=== PATIENT | female | born 1970 | race Two or more races ===

== ENCOUNTER 2017-01-01 10:20 | Emergency (ER) | payer SELFPAY ==
[~2017-01-01] VITALS: Ht 172.7 cm; Wt 61.2 kg
[~2017-01-01 10:20] MED LIST: BENZ200C39 PO; BUTA1CAP29 PO; CETI10TA22 PO
[2017-01-01 10:53] VITALS: BP 120/77
[2017-01-01] MEDS ORDERED: HYDR-971 PO (10:57)
[2017-01-01] MEDS ORDERED: LEVO500T38 PO (10:57)
--- NOTE | 2017-01-01 10:58 | PHYS DOC ---
Past Medical History Past Medical History: Sinusitis Past Surgical History: No Surgical History Alcohol Use: None Drug Use: None Adult General Chief Complaint Chief Complaint: DENTAL PROBLEM [facility] HPI Patient is a 46 year old female presents emergency department stating that she has having upper dental pain and discomfort with sinus pressure on the left since Monday. Patient does state she has some chronic sinus problems. Patient states that she's been trying to use closed to pull out the infection without success. She has been taken Aleve sinus to help with her sinus pressure without success either. Patient denies fever, chills or any nausea vomiting. She denies any foul tightness in her mouth. Patient states that she does not have a dentist in which to follow-up with due to funds. Review of Systems Review of Systems Constitutional: Denies fever or chills [] Eyes: Denies change in visual acuity, redness, or eye pain [] HENT: Denies nasal congestion or sore throat. C/o upper frontal dental pain and left sinus pressure Respiratory: Denies cough or shortness of breath [] Cardiovascular: No additional information not addressed in HPI [] GI: Denies abdominal pain, nausea, vomiting, bloody stools or diarrhea [] : Denies dysuria or hematuria [] Musculoskeletal: Denies back pain or joint pain [] Integument: Denies rash or skin lesions [] Neurologic: Denies headache, focal weakness or sensory changes [] Allergies Allergies Allergies Coded Allergies Type Severity Reaction Last Updated Verified Penicillins Allergy Intermediate rash 08/23/16 Yes Physical Exam Physical Exam Constitutional: Well developed, well nourished, no acute distress, non-toxic appearance. [] HENT: Normocephalic, atraumatic, bilateral external ears normal, oropharynx moist, no oral exudates, nose normal. Bilateral tympanic membrane appears to be normal. Throat with postnasal drip yellow in color noted. No exudate noted. Patient with upper teeth that appear to be decayed down into the gums. Patient does have tenderness noted on the left upper gum area. Patient does have swelling noted to the left maxillary sinus area with tenderness noted. Eyes: PERRLA, EOMI, conjunctiva normal, no discharge. [] Neck: Normal range of motion, no tenderness, supple, no stridor. [] Cardiovascular:Heart rate regular rhythm, no murmur [] Lungs & Thorax: Bilateral breath sounds clear to auscultation [] Skin: Warm, dry, no erythema, no rash. [] Back: No tenderness Extremities: No tenderness, no cyanosis, no clubbing, ROM intact, no edema. [] Neurologic: Alert and oriented X 3, normal motor function, normal sensory function, no focal deficits noted. [] Psychologic: Affect normal, judgement normal, mood normal. [] EKG EKG [] Radiology/Procedures Radiology/Procedures [] Course & Med Decision Making Course & Med Decision Making Pertinent Labs and Imaging studies reviewed. (See chart for details) Recommended patient to do warm salt water gargles 4 times a day and prior to bedtime. Patient will be provided with hydrocodone for severe pain and discomfort. Recommended to continue to use the Aleve sinus. She will be placed on antibiotics for dental infection and sinusitis. Recommended patient follow- up with the dentist within the next week. Patient agrees with discharge instructions treatment regimens and follow-up recommendations. Dragon Disclaimer Dragon Disclaimer This electronic medical record was generated, in whole or in part, using a voice recognition dictation system. Departure Departure Impression: Primary Impression: Sinusitis Additional Impression: Dental infection Disposition: HOME, SELF-CARE Condition: STABLE Referrals: NO PCP (PCP) Patient Instructions: Dental Pain, [id number], Sinusitis, [id number] Additional Instructions: Activity as tolerated Medication as prescribed Warm salt water mouth rinses four times a day and prior to bedtime Drink plenty of fluids Followup with dentist in the next week Return to emergency department as needed for signs and symptoms that become worse. Scripts Levofloxacin (Levaquin)500 Mg Tablet1 Tab PO DAILY #7 TAB Prov:LIDIA BANKS MANAGER ANALYTICAL 01/01/17 Hydrocodone/Apap 5-325 ([place] 5-325 Tablet)1 Each Tablet1 Tab PO PRN Q6HRS PRN PAIN #10 TAB Prov:LIDIA BANKS MANAGER ANALYTICAL 01/01/17 Problem Qualifiers LIDIA BANKS MANAGER ANALYTICAL Jan 01, 2017 10:58
== END 2017-01-01 11:02 | disposition home or self-care (01) ==
LOC: ER 10:20
DX: J32.9 Chronic sinusitis, unspecified (principal); K04.7 Periapical abscess without sinus; Z88.0 Allergy status to penicillin
CPT/HCPCS: 81025; 99283

== ENCOUNTER 2017-11-10 13:11 | Emergency (ER) | payer SELFPAY | END 2017-11-10 14:00 | disposition home or self-care (01) | LOC: ER 13:11 | DX: K04.7 Periapical abscess without sinus (principal); Z88.0 Allergy status to penicillin | CPT/HCPCS: 99283 ==

== ENCOUNTER 2018-12-20 14:33 | Emergency (ER) | payer SELFPAY ==
[~2018-12-20] VITALS: Ht 172.7 cm; Wt 65.8 kg
[~2018-12-20 14:33] MED LIST changes: -BENZ200C39 PO; +BENZ200C47 PO; +CLIN300C8 PO; +HYDR-3164 PO; +LEVO500T59 PO
[2018-12-20 16:34] VITALS: BP 131/86
[2018-12-20 17:17] LABS: BILIRUBIN,URINE NEGATIVE (NEG); CLARITY,URINE CLEAR; COLOR,URINE YELLOW; NITRITE,URINE NEGATIVE (NEG); PH,URINE 6.5; PROTEIN,URINE NEGATIVE (NEG-TRACE); UROBILINOGEN,URINE 0.2 mg/dL (0.2 mg/dL)
[2018-12-20 17:22] LABS: BACTERIA,URINE 0 /HPF (0-FEW); RBC,URINE 0 /HPF (0-2); SQUAMOUS EPITHELIAL CELL,UR OCC /LPF; WBC,URINE 0 /HPF (0-4)
[2018-12-20 17:35] LABS: BASO # 0.1 x10^3/uL (0.0-0.2); BASO % 1 % (0-3); EOS # 0.2 x10^3/uL (0.0-0.7); EOS % 2 % (0-3); HEMATOCRIT 39.5 % (36.0-47.0); LYMPH # 2.1 x10^3/uL (1.0-4.8); LYMPH % 24 % (24-48); MEAN CORPUSCULAR HEMOGLOBIN 29 pg (25-35); MEAN CORPUSCULAR HGB CONC 33 g/dL (31-37); MEAN CORPUSCULAR VOLUME 88 fL (79-100); MONO # 0.6 x10^3/uL (0.0-1.1); MONO % 7 % (0-9); NEUT # 5.7 x10^3uL (1.8-7.7); NEUT % 66 % (31-73); PLATELET COUNT 266 x10^3/uL (140-400); RED CELL DISTRIBUTION WIDTH 14.6 % (11.5-14.5); WHITE BLOOD COUNT 8.7 x10^3/uL (4.0-11.0)
[2018-12-20 17:49] LABS: CREATININE 0.7 mg/dL (0.6-1.0); GFR 89.3; POTASSIUM 3.9 mmol/L (3.5-5.1)
[2018-12-20 17:55] LABS: ALBUMIN 3.7 g/dL (3.4-5.0); ALBUMIN/GLOBULIN RATIO 0.9 (1.0-1.7); TOTAL BILIRUBIN 0.3 mg/dL (0.2-1.0)
--- NOTE | 2018-12-20 19:01 | RAD ---
PELVIS W/TV: 12/20/2018 5:41 PM INDICATION: 48 years old Female. VAGINAL BLEEDING. COMPARISON: None. TECHNIQUE: Transabdominal and transvaginal sonographic evaluation of the pelvis was performed. Grayscale, color Doppler and spectral waveform analysis were utilized. FINDINGS: UTERUS: Size: 8.4 x 4.7 x 5.0 cm. Masses: None. Endometrium: 10.2 mm. Trace fluid is noted within the endometrium. RIGHT OVARY: Not visualized. LEFT OVARY: 2.1 x 1.5 x 1.9 cm. Unremarkable. Arterial and venous waveforms are identified at the time of imaging. FREE FLUID: None. URINARY BLADDER: Unremarkable. IMPRESSION: Trace fluid is identified within the endometrium which is within normal limits measuring 10.2 mm (normal for premenopausal female). Right ovary is not visualized. Left ovary is normal in appearance. Electronically signed by: Ankita Wagner MD (12/20/2018 6:59 PM) [facility]
--- NOTE | 2018-12-20 19:26 | PHYS DOC ---
Past Medical History Past Medical History: Other Additional Past Medical Histor: miscarriage 2014 (KIKO DALE APRN) Past Surgical History: No Surgical History (KIKO DALE APRN) Alcohol Use: None Drug Use: None (ROCHELLEUbaldoKIKO APRN) Adult General Chief Complaint Chief Complaint: VAGINAL BLEEDING HPI HPI Patient is a 48 year old female who presents with vaginal bleeding. Patient states since the beginning of this month she's had two menstrual cycles, she states this cycle began 2-3 days ago. She states the periods are light but concerning to her. She states she does not have any abdominal pain, no nausea, no vomiting. Denies any chance she is . (CHITOKIKO ZENDEJAS) Review of Systems Review of Systems Constitutional: Denies fever or chills [] Eyes: Denies change in visual acuity, redness, or eye pain [] HENT: Denies nasal congestion or sore throat [] Respiratory: Denies cough or shortness of breath [] Cardiovascular: No additional information not addressed in HPI [] GI: Reports vaginal bleeding. Denies abdominal pain, nausea, vomiting, bloody stools or diarrhea [] : Denies dysuria or hematuria [] Musculoskeletal: Denies back pain or joint pain [] Integument: Denies rash or skin lesions [] Neurologic: Denies headache, focal weakness or sensory changes [] All other systems were reviewed and found to be within normal limits, except as documented in this note. (CHITOKIKO APRN) Current Medications Current Medications Current Medications Medications (Trade) Dose Ordered Sig/Laura Start Time Stop Time Status Last Admin Dose Admin Acetaminophen (Tylenol) 1,000 mg 1X ONCE 12/20/18 19:30 12/20/18 19:31 DC 12/20/18 19:27 1,000 MG (LUCRECIA BROWN DO) Allergies Allergies Allergies Coded Allergies Type Severity Reaction Last Updated Verified Penicillins Allergy Intermediate rash 08/23/16 Yes (LUCRECIA BROWN DO) Physical Exam Physical Exam Constitutional: Well developed, well nourished, no acute distress, non-toxic appearance. [] HENT: Normocephalic, atraumatic, bilateral external ears normal, oropharynx moist, no oral exudates, nose normal. [] Eyes: PERRLA, EOMI, conjunctiva normal, no discharge. [] Neck: Normal range of motion, no tenderness, supple, no stridor. [] Cardiovascular:Heart rate regular rhythm, no murmur [] Lungs & Thorax: Bilateral breath sounds clear to auscultation [] Abdomen: Bowel sounds normal, soft, no tenderness, no masses, no pulsatile masses. [] Pelvic exam External pelvic appears normal, cervix is visualized, closed, no CMT, no adnexal tenderness, small amount of blood in the vaginal vault. Skin: Warm, dry, no erythema, no rash. [] Back: No tenderness, no CVA tenderness. [] Extremities: No tenderness, no cyanosis, no clubbing, ROM intact, no edema. [] Neurologic: Alert and oriented X 3, normal motor function, normal sensory function, no focal deficits noted. [] Psychologic: Affect normal, judgement normal, mood normal. [] (KIKO DALE APRN) Current Patient Data Vital Signs Vital Signs Date Time Temp Pulse Resp B/P (MAP) Pulse Ox O2 Delivery O2 Flow Rate FiO2 12/20/18 16:34 98.7 81 18 131/86 (101) 97 Room Air 98.7 (BROWN,LUCRECIA R DO) Lab Values Laboratory Tests Test 12/20/18 14:45 12/20/18 17:11 12/20/18 17:20 Urine Collection Type Unknown Urine Color Yellow Urine Clarity Clear Urine pH 6.5 Urine Specific [place] <=1.005 Urine Protein Negative mg/dL (NEG-TRACE) Urine Glucose (UA) Negative mg/dL (NEG) Urine Ketones (Stick) Negative mg/dL (NEG) Urine Blood Trace (NEG) Urine Nitrite Negative (NEG) Urine Bilirubin Negative (NEG) Urine Urobilinogen Dipstick 0.2 mg/dL (0.2 mg/dL) Urine Leukocyte Esterase Negative (NEG) Urine RBC 0 /HPF (0-2) Urine WBC 0 /HPF (0-4) Urine Squamous Epithelial Cells Occ /LPF Urine Bacteria 0 /HPF (0-FEW) Chlamydia DNA Probe Negative (Negative) Neisseria gonorrhoeae DNA Probe Negative (Negative) POC Urine HCG, Qualitative Hcg negative (Negative) White Blood Count 8.7 x10^3/uL (4.0-11.0) Red Blood Count 4.50 x10^6/uL (3.50-5.40) Hemoglobin 13.0 g/dL (12.0-15.5) Hematocrit 39.5 % (36.0-47.0) Mean Corpuscular Volume 88 fL (79-100) Mean Corpuscular Hemoglobin 29 pg (25-35) Mean Corpuscular Hemoglobin Concent 33 g/dL (31-37) Red Cell Distribution Width 14.6 % (11.5-14.5) H Platelet Count 266 x10^3/uL (140-400) Neutrophils (%) (Auto) 66 % (31-73) Lymphocytes (%) (Auto) 24 % (24-48) Monocytes (%) (Auto) 7 % (0-9) Eosinophils (%) (Auto) 2 % (0-3) Basophils (%) (Auto) 1 % (0-3) Neutrophils # (Auto) 5.7 x10^3uL (1.8-7.7) Lymphocytes # (Auto) 2.1 x10^3/uL (1.0-4.8) Monocytes # (Auto) 0.6 x10^3/uL (0.0-1.1) Eosinophils # (Auto) 0.2 x10^3/uL (0.0-0.7) Basophils # (Auto) 0.1 x10^3/uL (0.0-0.2) Sodium Level 139 mmol/L (136-145) Potassium Level 3.9 mmol/L (3.5-5.1) Chloride Level 103 mmol/L (98-107) Carbon Dioxide Level 26 mmol/L (21-32) Anion Gap 10 (6-14) Blood Urea Nitrogen 6 mg/dL (7-20) L Creatinine 0.7 mg/dL (0.6-1.0) Estimated GFR (Cockcroft-Gault) 89.3 BUN/Creatinine Ratio 9 (6-20) Glucose Level 90 mg/dL (70-99) Calcium Level 9.0 mg/dL (8.5-10.1) Total Bilirubin 0.3 mg/dL (0.2-1.0) Aspartate Amino Transferase (AST) 14 U/L (15-37) L Alanine Aminotransferase (ALT) 13 U/L (14-59) L Alkaline Phosphatase 96 U/L (46-116) Total Protein 8.0 g/dL (6.4-8.2) Albumin 3.7 g/dL (3.4-5.0) Albumin/Globulin Ratio 0.9 (1.0-1.7) L Laboratory Tests 12/20/18 17:20 Laboratory Tests 12/20/18 17:20 Microbiology 12/20/18 Wet Prep - Final, Complete (LUCRECIA BROWN DO) EKG EKG [] (KIKO DALE APRN) Radiology/Procedures Radiology/Procedures []PROCEDURE: PELVIS W/TV PELVIS W/TV: 12/20/2018 5:41 PM INDICATION: 48 years old Female. VAGINAL BLEEDING. COMPARISON: None. TECHNIQUE: Transabdominal and transvaginal sonographic evaluation of the pelvis was performed. Grayscale, color Doppler and spectral waveform analysis were utilized. FINDINGS: UTERUS: Size: 8.4 x 4.7 x 5.0 cm. Masses: None. Endometrium: 10.2 mm. Trace fluid is noted within the endometrium. RIGHT OVARY: Not visualized. LEFT OVARY: 2.1 x 1.5 x 1.9 cm. Unremarkable. Arterial and venous waveforms are identified at the time of imaging. FREE FLUID: None. URINARY BLADDER: Unremarkable. IMPRESSION: Trace fluid is identified within the endometrium which is within normal limits measuring 10.2 mm (normal for premenopausal female). Right ovary is not visualized. Left ovary is normal in appearance. Electronically signed by: Bob Rajput MD (12/20/2018 6:59 PM) [facility] DICTATED and SIGNED BY: BOB RAJPUT MD DATE: 12/20/181849 (KIKO DALE APRN) Course & Med Decision Making Course & Med Decision Making Pertinent Labs and Imaging studies reviewed. (See chart for details) This is a 48-year-old female patient presenting to the ED today with complaints of vaginal bleeding that began 2 days ago, patient is concerned because this is her second cycle this month. She is 48 around the age of perimenopause. CBC with a normal WBC, CMP with no acute findings, negative urine, urine analysis is negative for infection. Wet prep is negative. Pelvic ultrasound is negative. Patient will follow up with [employer]. (KIKO DALE APRN) Dragon Disclaimer Dragon Disclaimer This electronic medical record was generated, in whole or in part, using a voice recognition dictation system. (MUTUNGA,KIKO ABRASIVE MIXER HELPER) Departure Departure Impression: Primary Impression: Dysfunctional uterine bleeding Disposition: HOME, SELF-CARE Condition: STABLE Referrals: NO PCP (PCP) NORMA AMAYA MD follow up in 1 week Patient Instructions: Uterine Bleeding, Dysfunctional Additional Instructions: You were evaluated in the emergency room for vaginal bleeding. Please contact the provided [employer] and follow-up in the next 7 days. Come back to the ED at any point to start soaking more than 1 feminine pad an hour. Attending Signature Attending Signature I have reviewed the PA/HAZARDOUS SUBSTANCES ENGINEER's note and plan of care. I was available for consultation as needed during the patient's visit in the emergency department. I agree with the clinical impression, plan, and disposition. (LUCRECIA BROWN DO) KIKO DALE APRN Dec 20, 2018 19:26 LUCRECIA BROWN DO Dec 24, 2018 13:57
[2018-12-20] MEDS ORDERED: ACETAMINOPHEN 500 MG TABLET PO ONE (19:30)
[2018-12-21 13:20] LABS: GC PROBE Negative (Negative)
== END 2018-12-20 19:35 | disposition home or self-care (01) ==
LOC: ER 14:33
DX: N93.8 Other specified abnormal uterine and vaginal bleeding (principal); Z88.0 Allergy status to penicillin
CPT/HCPCS: 36415; 76830; 76856; 80053; 81001; 81025; 85025; 87491; 87591; 99284; Q0111

== ENCOUNTER 2020-05-25 16:21 | Emergency (ER) | payer SELFPAY ==
[~2020-05-25] VITALS: Ht 167.6 cm; Wt 61.3 kg
[~2020-05-25 16:21] MED LIST changes: -CETI10TA22 PO; +CETI10TA24 PO
[2020-05-25] MEDS ORDERED: AZIT250T PO (18:46)
--- NOTE | 2020-05-25 18:47 | PHYS DOC ---
Past Medical History Past Medical History: Other Additional Past Medical Histor: miscarriage 2014 Past Surgical History: No Surgical History Smoking Status: Current Every Day Smoker Alcohol Use: None Drug Use: None General Adult EDM: Chief Complaint: Congestion HPI: HPI: Patient is a 49 year old female who presents with complaints of recurrent chronic sinus infections, patient states that she usually takes clindamycin for it but would like something different this time because clindamycin is very expensive. Patient states that she is allergic to amoxicillin, stating that it makes her break out in hives and swelling around her mouth. Patient states that this bout of sinus infection started 3 days ago. Patient denies any fever or chills, also denies any exposure to the COVID-19 virus and does not have any concerns for the COVID-19 virus is not requesting to be tested. Patient denies any visual changes, denies cough or shortness of breath. Patient denies chest pain, or edema of her extremities. Patient denies any abdominal pain, nausea, vomiting, diarrhea, constipation, problems urinating, vaginal discharge, or STI concerns. Patient denies any back pains or pain in her joints, skin rashes, headaches, focal weaknesses, or sensory changes. Patient denies any swelling of her glands, any recent life changes, depressions, anxieties, homicidal or suicidal ideation. Review of Systems: Review of Systems: Constitutional: Denies fever or chills. Eyes: Denies change in visual acuity. HENT: Reports nasal congestion and sinus pressure, denies sore throat. Respiratory: Denies cough or shortness of breath. Cardiovascular: Denies chest pain or edema. GI: Denies abdominal pain, nausea, vomiting, bloody stools or diarrhea. : Denies dysuria. Musculoskeletal: Denies back pain or joint pain. Integument: Denies rash. Neurologic: Denies headache, focal weakness or sensory changes. Endocrine: Denies polyuria or polydipsia. Lymphatic: Denies swollen glands. Psychiatric: Denies depression or anxiety. Heart Score: Risk Factors: Risk Factors: DM, Current or recent (<one month) smoker, HTN, HLP, family history of CAD, obesity. Risk Scores: Score 0 - 3: 2.5% MACE over next 6 weeks - Discharge Home Score 4 - 6: 20.3% MACE over next 6 weeks - Admit for Clinical Observation Score 7 - 10: 72.7% MACE over next 6 weeks - Early Invasive Strategies Family History: Family History: Reports family history of heart disease and smokers. Current Medications: Patient denies taking any current medications. Allergies: Allergies: Allergies Coded Allergies Type Severity Reaction Last Updated Verified Penicillins Allergy Intermediate rash 08/23/16 Yes Physical Exam: PE: Constitutional: Well developed, well nourished, no acute distress, non-toxic appearance. HENT: Normocephalic, atraumatic, bilateral external ears normal, oropharynx moist, no oral exudates, nose normal. Pain elicited with palpation over maxillary sinuses, nasal passages slightly erythematous, no postnasal drip noted. Eyes: PERRLA, EOMI, conjunctiva normal, no discharge. Pupils 4 mm. Neck: Normal range of motion, no tenderness, supple, no stridor. Cardiovascular:Heart rate regular rhythm, no murmur, heart sounds S1-S2, no a bnormalities noted per auscultation. Lungs & Thorax: Bilateral breath sounds clear to auscultation all lung rashid. Abdomen: Bowel sounds normal all 4 quadrant, soft, no tenderness, no masses, no pulsatile masses. Skin: Warm, dry, no erythema, no rash. Back: No tenderness, no CVA tenderness. Extremities: No tenderness, no cyanosis, no clubbing, ROM intact, no edema. Neurologic: Alert and oriented X 3, normal motor function, normal sensory function, no focal deficits noted. Psychologic: Affect normal, judgement normal, mood normal. Current Patient Data: Vital Signs: Vital Signs Date Time Temp Pulse Resp B/P (MAP) Pulse Ox O2 Delivery O2 Flow Rate FiO2 05/25/20 16:45 98.0 85 18 138/88 (105) 99 Room Air 98.0 EKG: EKG: [] Radiology/Procedures: Radiology/Procedures: [] Course & Med Decision Making: Course & Med Decision Making Pertinent Labs and Imaging studies reviewed. (See chart for details) 49-year-old female patient presents emergency department complaining of chronic sinus infections, patient states that it has been since patient states that she would like to have an antibiotic that is not amoxicillin but is not as expensive as clindamycin. Examination was consistent with sinusitis infectious process. Patient will be given a prescription for Z-Edvin. Discussed discharge instructions and prescription instructions with patient who was agreeable to this planning. Discussed return to ER precautions and concerns, patient had no further questions or concerns. Patient discharged home. Ozzy Disclaimer: Ozzy Disclaimer: This electronic medical record was generated, in whole or in part, using a voice recognition dictation system. Departure Departure Impression: Primary Impression: Sinusitis Qualified Codes: J32.0 - Chronic maxillary sinusitis Referrals: NO PCP (PCP) Patient Instructions: Sinusitis Additional Instructions: Take medications as prescribed, return to emergency department if symptoms worsen, follow-up with your doctor soon. Scripts Azithromycin (ZITHROMAX) 250 Mg Tablet 1 PKG PO UD, #6 TAB 0 Refills Prov: LUCRECIA LUONG APRN 05/25/20 Justicifation of Admission Dx: Justifications for Admission: Justification of Admission Dx: N/A LUCRECIA LUONG APRN May 25, 2020 18:47
[2020-05-25 18:57] VITALS: BP 124/84
== END 2020-05-25 18:57 | disposition home or self-care (01) ==
LOC: ER 16:21
DX: J32.0 Chronic maxillary sinusitis (principal); R60.0 Localized edema; F17.200 Nicotine dependence, unspecified, uncomplicated; Z88.0 Allergy status to penicillin; Z88.1 Allergy status to other antibiotic agents; Z98.890 Other specified postprocedural states
CPT/HCPCS: 99283

== ENCOUNTER 2021-11-11 16:51 | Emergency (ER) | payer SELFPAY ==
[~2021-11-11] VITALS: Ht 172.7 cm; Wt 64.1 kg
[~2021-11-11 16:51] MED LIST changes: +AZIT250T PO; -CETI10TA24 PO; +CETI10TA74 PO; +CLIN-94 PO; -CLIN300C8 PO
[2021-11-11 17:10] VITALS: BP 150/90
[2021-11-11] MEDS ORDERED: IBUP-1007 PO (17:44)
[2021-11-11] MEDS ORDERED: CLIN150C16 PO (17:44)
[2021-11-11] MEDS ORDERED: IBUPROFEN 200 MG TABLET. PO ONE (17:45)
[2021-11-11] MEDS ORDERED: CLINDAMYCIN HCL 150 MG CAPSULE. PO ONE (17:45)
[2021-11-11] MEDS ORDERED: ACETAMINOPHEN 500 MG TABLET PO ONE (17:45)
--- NOTE | 2021-11-11 17:45 | PHYS DOC ---
Past Medical History Past Medical History: Other Additional Past Medical Histor: miscarriage 2014 Past Surgical History: No Surgical History Smoking Status: Current Every Day Smoker Additional Information: 1 ppd Alcohol Use: None Drug Use: None General Adult EDM: Chief Complaint: DENTAL PROBLEM HPI: HPI: Patient is a 51 year old female who presents emergency department with left upper molar pain that started this morning. Patient reports that she has had a long history of dental problems since her pregnancies 30 years ago. Patient reports having only a few teeth left. Denies recent fever or chills, denies chest pain chest palpitations, visual disturbances, tongue swelling, facial or tongue numbness. Patient denies other physical complaints or physical concerns. Patient reports her last menstrual cycle was 2 years ago and she is now postmenopausal. Review of Systems: Review of Systems: 14 body systems of review of systems have been reviewed. See HPI for pertinent positives and negative responses, otherwise all other systems are negative, nonpertinent or noncontributory. Constitutional: Negative except as outlined in HPI above. Skin: Negative except as outlined in HPI above. Eyes: Negative except as outlined in HPI above. HENT: Negative except as outlined in HPI above. Respiratory: Negative except as outlined in HPI above. Cardiovascular: Negative except as outlined in HPI above. GI: Negative except as outlined in HPI above. : Negative except as outlined in HPI above. Musculoskeletal: Negative except as outlined in HPI above. Integument: Negative except as outlined in HPI above. Neurologic: Negative except as outlined in HPI above. Endocrine: Negative except as outlined in HPI above. Lymphatic: Negative except as outlined in HPI above. Psychiatric: Negative except as outlined in HPI above. Heart Score: C/O Chest Pain: No Risk Factors: Risk Factors: DM, Current or recent (<one month) smoker, HTN, HLP, family history of CAD, obesity. Risk Scores: Score 0 - 3: 2.5% MACE over next 6 weeks - Discharge Home Score 4 - 6: 20.3% MACE over next 6 weeks - Admit for Clinical Observation Score 7 - 10: 72.7% MACE over next 6 weeks - Early Invasive Strategies Allergies: Allergies: Allergies Coded Allergies Type Severity Reaction Last Updated Verified Penicillins Allergy Intermediate rash 11/11/21 Yes Physical Exam: PE: Constitutional: Well developed, well nourished, no acute distress, non-toxic appearance. 51-year-old female in no apparent distress. HENT: Normocephalic, atraumatic. Oropharynx moist, pink, marked dental caries, patient's complaint upper left molar decayed to gumline, pulpitis appreciated, no purulent drainage from gum. Eyes: Conjunctiva normal, no discharge. Neck: Normal range of motion, no stridor. Cardiovascular: No cyanosis appreciated, distal cap refill less than 2 seconds. Lungs & Thorax: Patient is in no respiratory distress, no audible adventitious lung sounds appreciated. Abdomen: Nontender, no abnormalities noted. Skin: Warm, dry, no erythema, no rash. Back: No tenderness, no deformities. Extremities: No tenderness, no cyanosis, no clubbing, ROM intact, no edema. Neurologic: Alert and oriented X 3, normal motor function, normal sensory func tion, no focal deficits noted. Psychologic: Affect normal, judgement normal, mood normal. Current Patient Data: Vital Signs: Vital Signs Date Time Temp Pulse Resp B/P (MAP) Pulse Ox O2 Delivery O2 Flow Rate FiO2 11/11/21 17:10 98.9 103 16 150/90 (110) 98 Room Air 98.9 EKG: EKG: [] Radiology/Procedures: Radiology/Procedures: [] Course & Med Decision Making: Course & Med Decision Making Pertinent Labs and Imaging studies reviewed. (See chart for details) [] Dragon Disclaimer: Draganthony Disclaimer: This electronic medical record was generated, in whole or in part, using a voice recognition dictation system. Departure Departure Impression: Primary Impression: Dental caries Additional Impression: Dental infection Disposition: HOME / SELF CARE / HOMELESS Condition: GOOD Referrals: NO PCP (PCP) Patient Instructions: Dental Caries, Dental Pain Additional Instructions: You were seen today in the emergency department for dental pain. You were started on clindamycin antibiotic regimen. You were given Tylenol and Motrin for pain today. You may continue to take [id number] Tylenol and Motrin for ongoing pain. Please take antibiotic as prescribed until complete. Please obtain an appointment with your dentist soon for reevaluation, call tomorrow for soonest appointment, you have been given a list of dental providers, please choose a dentist and see soon. You may try warm salt water swish and spits 3-4 times a day to assist in pain relief, please continue to provide good oral care. Return to the emergency department for worsening symptoms or other concerns. Thank you for visiting our Emergency Department. It was a pleasure taking care of you today in the emergency department and we appreciate you trusting us with your care. If any additional problems come up don't hesitate to return to visit us. Please follow up with your primary care provider so they can plan additional care if needed and know about the problem that you had. If symptoms worsen come back to the Emergency Department. Any concerning symptoms that start such as chest pain, shortness of air, weakness or numbness on one side of the body, running high fevers or any other concerning symptoms return to the ER. Scripts Ibuprofen (IBUPROFEN) 600 Mg Tablet 600 MG PO PRN Q6HRS PRN for INFLAMMATION, #30 TAB 0 Refills Prov: LUCRECIA LUONG APRN 11/11/21 Clindamycin Hcl (CLINDAMYCIN HCL) 150 Mg Capsule 3 CAP PO TID for dental infection for 14 Days, #126 CAP 0 Refills Prov: LUCRECIA LUONG APRN 11/11/21 LUCRECIA LUONG APRN Nov 11, 2021 17:45
== END 2021-11-11 18:09 | disposition home or self-care (01) ==
LOC: ER 16:51
DX: K04.7 Periapical abscess without sinus (principal); K02.9 Dental caries, unspecified; F17.200 Nicotine dependence, unspecified, uncomplicated; Z88.0 Allergy status to penicillin
CPT/HCPCS: 99284